=== PATIENT | female | born 1990 | race Caucasian/White ===

== ENCOUNTER 2021-12-05 12:39 | Emergency (ER) | payer OTHER, SELFPAY ==
--- NOTE | ~2021-12-05 | CT_ITS ---
EXAMINATION: NONCONTRAST HEAD CT NONCONTRAST CERVICAL SPINE CT INDICATION INFORMATION: Fall with posterior head strike COMPARISON: None TECHNIQUE: Separate noncontrast CT examinations of the head and cervical spine were performed. Coronal head CT images and coronal and sagittal cervical spine images were created at the technologist workstation. DLP: 1036 mGy-cm DOSE LOWERING TECHNIQUES: This CT examination was performed using dose optimization techniques as appropriate, variously including the following: - Automated exposure control - Adjustment of mA and/or kV according to patient size (this includes techniques or standardized protocols for targeted exams were dose is matched to indication/reason for exam; i.e. extremities or head) - Use of iterative reconstruction technique FINDINGS: Head: There is no evidence of acute intracranial hemorrhage or territorial infarction. No abnormal mass-effect or midline shift is seen. Ramos to white matter differentiation is well preserved. No extra-axial fluid collections are identified. The ventricles are normal in size. There is no abnormal attenuation within the brain parenchyma. The osseous structures and soft tissues are normal. Mucous retention cyst noted in the right maxillary sinus. The mastoid air cells are well-aerated. Cervical spine: There is anatomic alignment of the vertebral bodies and posterior elements. Vertebral body heights are maintained. Intervertebral disc spaces are preserved. No evidence of acute fracture. No prevertebral soft tissue swelling. Visualized portions of the lung apices are unremarkable. The thyroid gland is unremarkable. CT/CT cervical spine wo IV con IMPRESSION: No acute findings identified in the head or cervical spine.
--- NOTE | ~2021-12-05 | CT_ITS ---
EXAMINATION: NONCONTRAST HEAD CT NONCONTRAST CERVICAL SPINE CT INDICATION INFORMATION: Fall with posterior head strike COMPARISON: None TECHNIQUE: Separate noncontrast CT examinations of the head and cervical spine were performed. Coronal head CT images and coronal and sagittal cervical spine images were created at the technologist workstation. DLP: 1036 mGy-cm DOSE LOWERING TECHNIQUES: This CT examination was performed using dose optimization techniques as appropriate, variously including the following: - Automated exposure control - Adjustment of mA and/or kV according to patient size (this includes techniques or standardized protocols for targeted exams were dose is matched to indication/reason for exam; i.e. extremities or head) - Use of iterative reconstruction technique FINDINGS: Head: There is no evidence of acute intracranial hemorrhage or territorial infarction. No abnormal mass-effect or midline shift is seen. Ramos to white matter differentiation is well preserved. No extra-axial fluid collections are identified. The ventricles are normal in size. There is no abnormal attenuation within the brain parenchyma. The osseous structures and soft tissues are normal. Mucous retention cyst noted in the right maxillary sinus. The mastoid air cells are well-aerated. Cervical spine: There is anatomic alignment of the vertebral bodies and posterior elements. Vertebral body heights are maintained. Intervertebral disc spaces are preserved. No evidence of acute fracture. No prevertebral soft tissue swelling. Visualized portions of the lung apices are unremarkable. The thyroid gland is unremarkable. CT/CT head/brain wo IV con IMPRESSION: No acute findings identified in the head or cervical spine.
[2021-12-05 12:42] VITALS: BP 113/66; PULSE 64; RESP 18; TEMP 36.4; O2SAT 100; BMI 29.2
[2021-12-05 13:08] LABS: Appearance Urine Clear; Color Urine Yellow; Glucose Urine UA Negative (Negative); Leukocyte Esterase Urine Negative (Negative); Nitrite Urine Negative (Negative); PH 5.5 (5.0-9.0); Urine Blood Negative (Negative); Urine Ketones Negative (Negative); Urine Protein Negative (Neg-Trace)
[2021-12-05 13:10] LABS: UPreg QC Valid YES; Urine Pregnancy NEGATIVE (NEGATIVE)
--- NOTE | 2021-12-05 13:21 | ED.HEATRA ---
HPI - Head Injury General Chief complaint: Head Injury Stated complaint: Fall/Head inj/work related Time Seen by Provider: 12/05/21 12:47 Source: patient Mode of arrival: ambulatory Limitations: no limitations History of Present Illness HPI Narrative: 31-year-old female presents to the ER for evaluation after head injury at work. She was walking up the strairs when she reports reportedly stepped on a pencil, fell backwards and hit the back of her head on the ground of the landing between 2 sets of stairs.. She did not lose consciousness. She is not on blood thinners. She reports pain in the area where she struck her head, pain at the base of her neck and also pain in her bilateral temples with some nausea. She took some Motrin prior to coming in but her headache is not improved. MD Complaint: head injury and fall Onset (ago): minute(s) Mechanism of Injury: fall Place: work Loss of Consciousness: no Location of injury: occipital Severity: moderate Severity scale (1-10): 6 Quality: aching Radiation: neck Other Injuries: none Associated symptoms: nausea Related Data Allergies Allergy/AdvReac Type Severity Reaction Status Date / Time Penicillins [PCN] Allergy Rash Verified 12/05/21 12:41 Review of Systems Review of Systems: Constitutional: No Fever, No Chills ENT/Mouth: No dental trauma Cardiovascular: No Chest Pain, No SOB Gastrointestinal:+ Nausea, No Vomiting, No abdominal Pain Musculoskeletal: No joint pain, No Myalgias Skin: No Skin Lesions, No rash Neuro: No Weakness, No Numbness, No Dizziness, + Headache Psych: No Anxiety/Panic, No Depression Heme/Lymph: No Bruising, No Lymphadenopathy PMFSH Social History Social History Advance Directives: No Advance Directives Information Provided: Yes Physical Exam Vital Signs: Vital Signs: Last Vital Signs Temp 97.5 F 12/05/21 12:42 Pulse 64 12/05/21 12:42 Resp 18 12/05/21 12:42 BP 113/66 12/05/21 12:42 Pulse Ox 100 12/05/21 12:42 O2 Del Method 12/05/21 12:42 BMI result Body Mass Index 29.2 Appearance: Alert. Oriented X3. No acute distress. Head: Normocephalic, occipital area with generalized tenderness throughout, no palpable hematoma, no palpable skull depression or fracture. There is also some soft tissue tenderness at the base of the skull. Eyes: Pupils equal, round and reactive to light. EOMI. ENT: Pharynx normal. No blood behind the tympanic membranes or it in the EACs bilaterally. Neck: Normal inspection. Neck supple. Normal range of motion, no midline tenderness. CVS: Normal heart rate and rhythm. Pulses normal. Respiratory: No respiratory distress. Breath sounds normal. Skin: Skin warm and dry. Normal skin color. Normal skin turgor. No rashes. Extremities: Normal inspection x4, normal range of motion. Neuro: Oriented X 3. No motor deficit. No sensory deficit. Normal speech and cognition. Steady gait Course Course Course Narrative: 31-year-old female presents the ER for evaluation of a head injury sustained while at work. She fell backward while walking up stairs, hitting the back of her head on a hard floor surface. No loss of consciousness. She reports a generalized headache at this time. Neurologically she is nonfocal and appears well. She reports some mild nausea but no vomiting, lethargy, confusion. Will monitor in the ER. Will get CT scan for further evaluation. Reevaluation(s) Reevaluation #1: CT scans are normal. She remains neurologically intact. She is stable for discharge home. Work connection number provided. MDM - Head Injury Lab Data Labs: Lab Results 12/05/21 12/05/21 Range/Units 12:53 12:53 Urine Color Yellow Urine Appearance Clear Urine pH 5.5 (5.0-9.0) Ur Specific [place] 1.010 (1.005-1.025) Urine Protein Negative (Neg-Trace) mg/dL Urine Glucose (UA) Negative (Negative) mg/dL Urine Ketones Negative (Negative) mg/dL Urine Blood Negative (Negative) Urine Nitrite Negative (Negative) Ur Leukocyte Esterase Negative (Negative) Urine Test NEGATIVE (NEGATIVE) Discharge Plan Discharge Clinical Impression: Closed head injury Patient Disposition: Home, Self-Care Instructions: Head Injury (ED) Additional Instructions: Your CT scans today was normal. You may have sustained a mild concussion. Treatment for this is rest and supportive care. No strenuous activity. Avoid bright lights. Avoid screen time. Recommend taking Motrin and Tylenol as needed for headaches. Follow-up with your doctor as needed. If you develop new or worsening symptoms call 911 or come back to the ER for further evaluation. Referrals: [facility] [Outside] (Head injury while at work)
[2021-12-05] MEDS: Acetaminophen 325 MG TABLET 975 MG PO (13:26)
== END 2021-12-05 14:27 | disposition home or self-care (01) ==
PROVIDERS: Emergency Provider Emergency Medicine; PCP Physician Assistant Medical
DX: S09.90XA Unspecified injury of head, initial encounter (principal); R51.9 Headache, unspecified; M54.2 Cervicalgia; W01.0XXA Fall on same level from slipping, tripping and stumbling without subsequent striking against object, initial encounter; Y93.9 Activity, unspecified; Y92.9 Unspecified place or not applicable; Y99.0 Civilian activity done for income or pay; Z79.899 Other long term (current) drug therapy
CPT/HCPCS: 70450; 72125; 81003; 81025; 99283; 99284

== ENCOUNTER 2022-12-19 09:05 | Emergency (ER) | payer OTHER, SELFPAY ==
--- NOTE | ~2022-12-19 | XR_ITS ---
EXAMINATION: XR LUMBOSACRAL SPINE CLINICAL INFORMATION: Pain following weightlifting COMPARISON: None available. TECHNIQUE: Three views of the lumbosacral spine. FINDINGS: Vertebral bodies are well aligned there 5 not ribs bearing vertebral bodies and lumbar spine. There is mild narrowing of L4-L5 and L5-S1 intervertebral disc spaces. There is no spondylolysis or spondylolisthesis seen. Pedicles are preserved and sacroiliac joints unremarkable. Soft tissues are normal. XR/XR lumbar spine 2-3V IMPRESSION: Narrowing cough L4-L5 and L5-S1, correlate with clinical presentation
[2022-12-19 09:10] VITALS: BP 148/89; PULSE 90; O2SAT 99
[2022-12-19 09:19] VITALS: BP 123/72; PULSE 70; RESP 14; TEMP 36.6; O2SAT 100; BMI 29.3
--- NOTE | 2022-12-19 09:24 | ED_ITS ---
HPI - General Adult General Chief complaint: Back Pain/Injury Stated complaint: back pain Time Seen by Provider: 12/19/22 09:12 Source: patient, EMS and RN notes reviewed Mode of arrival: EMS Limitations: no limitations History of Present Illness HPI narrative: Patient is a 32-year-old female presenting to the emergency department with acute onset left lower back pain which began while she was lifting weights prior to arrival. Patient states that as she was squatting she felt as though her left leg gave out, causing the back pain. She denies any knee pain at this time. Reports left lumbar pain. States pain is radiating to left side of abdomen and down left leg. States that she was ambulatory after the injury but that when she went home and laid down the muscles began spasming. States that she was lifting two 45 lb plates which is not atypical for her and states that she is not naive to weightlifting. She reports tingling sensation to left lateral thigh. Denies any saddle anesthesia or bowel or bladder incontinence. States pain is tolerable while lying supine with legs bent, but intermittently spasms severely increasing the pain. She did not take any medications prior to arrival. States that when EMS moved her from their stretcher onto the ED stretcher she felt a cracking sensation. MD complaint: low back pain Onset (ago): hour(s) Location: back Radiation: abdomen and distal Severity: severe Severity scale (1-10): >10 Quality: sharp Pain Consistency: colicky Relieving factors: rest Exacerbating factors: movement Associated symptoms: other (tingling to leg) Treatments prior to arrival: none Related Data Previous Rx's Medication Instructions Recorded cyclobenzaprine 5 mg tablet 5 mg PO TID PRN muscle spasm #10 12/19/22 tabs lidocaine 5 % topical patch 1 patch topical DAILY #15 ea 12/19/22 prednisone 20 mg tablet 40 mg (2 x 20 mg) PO DAILY #10 tabs 12/19/22 Allergies Allergy/AdvReac Type Severity Reaction Status Date / Time Penicillins [PCN] Allergy Rash Verified 12/05/21 12:41 Review of Systems Review of Systems: As per HPI. Yes all other systems are reviewed and are negative Constitutional: Constitutional: Reports as per HPI PMF Social History Social History Advance Directives: No Advance Directives Information Provided: No Physical Exam ED Vital Signs: Vital Signs - 24 hr 12/19/22 09:19 12/19/22 11:32 Temperature 98 F 98.5 F Pulse Rate 70 95 Respiratory Rate 14 18 Blood Pressure 123/72 105/69 Pulse Oximetry 100 97 Oxygen Delivery Method Room Air Room Air BMI result Body Mass Index 29.3 Const General: cooperative, healthy appearing and no acute distress Orientation/consciousness: oriented to person, oriented to place, oriented to time and patient oriented x3 Limitations: no limitations HENMT Head: Yes normocephalic and Yes atraumatic Ears: external ears normal General nose exam: Normal external nose present Face and sinus: Yes face symmetric Mouth: oropharynx normal and moist mucous membranes Throat: Yes uvula midline Eyes Pupils: Equal, round and reactive pupils present Neck Neck: Yes normal visual inspection and Yes supple Resp Effort & Inspection: normal respiratory effort and able to speak in complete sentences Auscultation: clear to auscultation bilaterally Cardio Rate: regular rate Rhythm: regular rhythm Heart sounds: S1 normal heart sound present and S2 normal heart sound present GI Palpation (GI): Soft to palpation and nontender Auscultation: normoactive bowel sounds General: Yes no CVA tenderness Back/Spine/Pelvis Back: no CVA tenderness Cervical Spine: normal cervical lordosis, cervical ROM normal, No Cervical spine tenderness and No step off deformity Thoracic/Lumbar Spine: thoracic and lumbar spine normal to inspection, No Thoracic/lumbar spine scar(s), thoraco-lumbar ROM normal, straight leg raise negative bilaterally, pain with thoraco-lumbar ROM, thoraco-lumbar spasm on the left in the lower thoracic and in the upper lumbar, No thoracic spinal tenderness and No lumbar spinal tenderness Pelvis: no pain with anterior-posterior compression and no pain with lateral compression Sacroiliac joints: on the left tender to palpation Skin General skin exam: elasticity normal and turgor normal Neuro General: oriented to person, oriented to place, oriented to time, patient oriented x3, gait normal, tone normal, moves all extremities, Normal light touch and pain sensation, no focal motor deficits, CN's II-XI intact bilaterally and deep tendon reflexes 2+ bilaterally Cranial nerves: Yes Equal, round and reactive pupils present Cognition (Neuro): normal cognition Gait exam (Neuro): Normal gait present Motor exam (neuro): 5/5 motor strength present throughout, Normal motor muscle tone present throughout and Motor abnormalities not present Sensory Exam: Normal double simultaneous stimulation for sensation Extrem General: Yes full ROM, Yes no pedal edema and Yes no calf tenderness Psych Mental Status: mental status grossly normal Affect: normal affect Thought process: Normal thought process present Medications Administered Discontinued Medications Generic Name Dose Route Start Last Admin Trade Name Cecy PRN Reason Stop Dose Admin Acetaminophen 975 mg 12/19/22 09:32 12/19/22 09:58 Acetaminophen 325 Mg Tablet PO 12/19/22 09:33 975 mg ONCE ONE Administration Cyclobenzaprine HCl 10 mg 12/19/22 09:32 12/19/22 09:58 Cyclobenzaprine Hcl 10 Mg Tablet PO 12/19/22 09:33 10 mg ONCE ONE Administration Ibuprofen 600 mg 12/19/22 09:32 12/19/22 09:58 Ibuprofen 600 Mg Tablet PO 12/19/22 09:33 600 mg ONCE ONE Administration Medical Decision Making Medical Decision Making MDM Narrative: Patient is a 32-year-old female presenting to the emergency department with acute onset left lower back pain which began while she was lifting weights prior to arrival. On exam patient is awake, A+Ox3, VS WNL, afebrile, normal neurological exam without focal deficits, physical exam findings as above. Given reported symptoms and physical exam findings, initial differential includes vertebral compression fracture, disc herniation, spondolysis, muscle strain, radiculopathy. No red flag findings concerning for cord compression, cauda equina, spinal epidural abscess. X-ray notable for narrowing of L4-5, L5- S1. My interpretation is in agreement with the radiologist's interpretation. Results discussed with patient and all questions answered. Will prescribe course of prednisone, cyclobenzaprine, and lidocaine patches. Advised patient to apply ice for 10-15 minutes at a time several times daily, using caution not apply ice directly to skin. Instructed patient to follow-up with PCP this week. Will refer to [facility]. Return precautions discussed at bedside. Patient verbalized understanding of and agreement with plan. Differential Diagnosis Differential Diagnoses: The differential diagnosis associated with the presentation includes As per MDM. Independent Interpretation I performed an independent interpretation of an: Plain X-Ray Interpretation: Narrowing of L4-5, L5-S1 Radiology Impression Discussion of test interpretation with radiology: I have reviewed the radiologist's reading. Radiologist Impression: XR/XR lumbar spine 2-3V IMPRESSION: Narrowing cough L4-L5 and L5-S1, correlate with clinical presentation External Record Review External record reviewed: Inpatient record, Office record and Outpatient record Prescription Management I considered prescription management with: Pain Medication and Other Discharge Plan Discharge Clinical Impression: Narrowing of intervertebral disc space Patient Disposition: Home, Self-Care Additional Instructions: You were evaluated in the emergency department today for back pain. Your evaluation did not show signs of medical conditions requiring emergent intervention at this time. We recommended that you use ibuprofen or Tylenol per package directions every 6 hours as needed for pain. If necessary, you can alternate these medications so that you take one medication every 3 hours. For instance, at noon take ibuprofen, then at 3:00 p.m. take Tylenol, then at 6:00 p.m. take ibuprofen. YOU ARE BEING PRESCRIBED A SHORT COURSE OF STEROIDS, DO NOT TAKE ANY NSAIDS (IBUPROFEN, NAPROXEN, ETC.) WHILE TAKING THE PREDNISONE. ONCE YOU HAVE COMPLETED THE COURSE OF PREDNISONE YOU MAY RESUME USE OF NSAIDS. You are being prescribed a muscle relaxer which you may take every 8 hours as needed for spasms. You have been prescribed 5% topical lidocaine patches which you can wear for up to 12 hours in a 24 hour period. Do not apply heat directly over the patches. Please schedule an appointment for follow-up with your primary care physician this week for further evaluation of your symptoms. AVOID ANY WEIGHT LIFTING UNTIL YOUR SYMPTOMS HAVE RESOLVED OR UNTIL CLEARED BY [facility]. Return to the emergency department if you experience worsening back pain, difficulty walking, fevers, numbness, tingling, incontinence, groin numbness or tingling, or any other concerning symptoms. Prescriptions: New cyclobenzaprine 5 mg tablet 5 mg PO TID PRN (Reason: muscle spasm) Qty: 10 0RF lidocaine 5 % adhesive patch,medicated 1 patch topical DAILY Qty: 15 0RF Rx Instructions: leave on most painful area for up to 12 hrs prednisone 20 mg tablet 40 mg PO DAILY Qty: 10 0RF Referrals: [facility] [Provider Group]
[2022-12-19] MEDS: Ibuprofen 600 MG TABLET PO (09:58)
[2022-12-19] MEDS: Acetaminophen 325 MG TABLET 975 MG PO (09:58)
[2022-12-19] MEDS: Cyclobenzaprine HCl 10 MG TABLET PO (09:58)
[2022-12-19 11:32] VITALS: BP 105/69; PULSE 95; RESP 18; TEMP 36.9; O2SAT 97
[2022-12-19] MEDS: oxyCODONE HCl Immed Release 5 MG TABLET PO (12:51)
== END 2022-12-19 12:59 | disposition home or self-care (01) ==
PROVIDERS: Emergency Provider Emergency Medicine; PCP Physician Assistant Medical
DX: M48.07 Spinal stenosis, lumbosacral region (principal); M48.061 Spinal stenosis, lumbar region without neurogenic claudication; M54.50 Low back pain, unspecified
CPT/HCPCS: 72100; 99283; 99284